=== PATIENT | male | born 1940 | race Caucasian/White ===

== ENCOUNTER 2017-10-12 06:08 | Emergency (ER) | payer OTHER ==
[2017-10-12 06:15] VITALS: RESP 16
[2017-10-12] MEDS ORDERED: PROPARACAINE 0.5% 15 ML OPHT DROP ONE (06:25)
[2017-10-12] MEDS ORDERED: FLUORESCEIN SODIUM 1 MG STRIP OP ONE (06:25)
--- NOTE | 2017-10-12 07:44 | EDPHY ---
H & P Time Seen by Provider: 10/12/17 07:19 HPI/ROS: CHIEF COMPLAINT: Foreign body left eye HISTORY OF PRESENT ILLNESS: 76-year-old male presents with a foreign body sensation in his left eye. 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 He noticed a foreign body on his left upper eyelid. He tried to get out and it dislodged. However he continues to have a foreign body sensation in the left upper quadrant of his eye. No excessive tearing and no visual change. Past Medical/Surgical History: Hyperlipidemia Smoking Status: Never smoked Physical Exam: Visual Acuity: noted from Nurse's notes. Lids: Upper lid everted, no foreign body visible Conjunctivae: Conjunctival erythema, no discharge Pupils:equal round and reactive to light EOMI Cornea: Normal, no fluorescein uptake Anterior chamber:Clear, no hyphema Constitutional: Initial Vital Signs Temperature (C) 36.7 C 10/12/17 06:09 Heart Rate 78 10/12/17 06:09 Respiratory Rate 16 10/12/17 06:09 Blood Pressure 141/91 H 10/12/17 06:09 O2 Sat (%) 94 10/12/17 06:09 O2 Delivery Mode Room Air Allergies/Adverse Reactions: No Known Allergies Allergy (Verified 10/12/17 06:14) Home Medications: Medication Instructions Recorded Aspirin [Aspirin 81mg (*)] 81 mg PO DAILY 10/16/14 Atorvastatin Calcium [Lipitor 10 10 mg PO HS 10/16/14 mg (*)] Herbals/Supplements -Info Only 1 ea PO DAILY 10/16/14 Levothyroxine [Synthroid 175 mcg 175 mcg PO DAILY06 10/16/14 (*)] Magnesium Oxide [Magnesium Oxide 1,200 mg PO HS 10/16/14 400 mg (*)] Multivitamins [Multivitamin (*)] 1 each PO DAILY 10/16/14 Cashion-3 Fatty Acids [Fish Oil 1000 2,000 mg PO DAILY 10/16/14 mg (*)] Medical Decision Making ED Course/Re-evaluation: This patient presents with a foreign body sensation in his left eye. No foreign body visualized and no corneal abrasion. The eye was irrigated with normal saline. [place] better after irrigation. 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 Differential Diagnosis: Differential diagnosis includes hyphema, acute iritis, traumatic mydriasis, corneal abrasion, globe rupture. Departure - Departure Disposition: Home, Routine, Self-Care Clinical Impression: Foreign body, eye Qualifiers: Encounter type: initial encounter Laterality: left Qualified Code(s): T15.92XA - Foreign body on external eye, part unspecified, left eye, initial encounter Condition: Good Instructions: Eye Foreign Body (ED) Additional Instructions: Call Dr. Goss to make an appointment if the eye irritation persists. Referrals: Mary Garland MD [Primary Care Provider] - As per Instructions
[2017-10-12 08:01] VITALS: BP 138/80; PULSE 76; TEMP 97.9; O2SAT 98
== END 2017-10-12 08:00 | disposition home or self-care (01) ==
DX: T15.92XA Foreign body on external eye, part unspecified, left eye, initial encounter (principal); Z79.82 Long term (current) use of aspirin; X58.XXXA Exposure to other specified factors, initial encounter; Y92.513 Shop (commercial) as the place of occurrence of the external cause; Y93.89 Activity, other specified

== ENCOUNTER 2017-11-29 13:46 | Observation (INO) | payer OTHER ==
--- NOTE | 2017-11-29 14:21 | CPEKG ---
Heart Rate: 70 RR Interval: 857 P-R Interval: 168 QRSD Interval: 96 QT Interval: 388 QTC Interval: 419 P Seneca: 48 QRS Seneca: 42 T Wave Seneca: 26 EKG Severity - OTHERWISE NORMAL ECG - EKG Impression: SINUS RHYTHM EKG Impression: LOW VOLTAGE IN FRONTAL LEADS Electronically Signed By: Nori Lopez 29-Nov-2017 20:51:24
--- NOTE | 2017-11-29 14:23 | EDPHY ---
H & P Stated Complaint: 40 min ago episode of dizzyness/blurred vision and memory isssues/resolving Time Seen by Provider: 11/29/17 14:14 HPI/ROS: CHIEF COMPLAINT: Lightheadedness, vision loss, memory change HISTORY OF PRESENT ILLNESS: The patient is a 76 y/o male with hypothyroidism arriving with his complaining of acute onset lightheadedness, partial vision loss, and memory loss onset 1 hour ago. He describes walking into [employer] and feeling suddenly lightheaded and unsteady on his feet. He was able to continue walking through the store. He then received a text and had difficulty seeing the screen to read it. He says, "I could see part of it, but not all of it" because there was a section on the right side that was "completely blank." This was associated with fatigue and difficulty remembering some facts like the Loss Prevention Lead's name. So he sat down while his got him pizza and soda; he has gradually been feeling better since eating. He notes he had a latte with chocolate this morning, but did not eat anything until the pizza this afternoon. He did have some prior episodes of hypoglycemia when he was in his 30s-40s. His lightheadedness and visual change have since resolved, though he still feels like his memory is not back to baseline. He denies history of diabetes, hypertension, cardiac disease, respiratory disease. He was able to exercise on a bike for 30 minutes yesterday normally. REVIEW OF SYSTEMS: Constitutional: No fever, no chills Eyes: see HPI ENT: No sore throat Respiratory: No cough, no shortness of breath Cardiac: No chest pain Gastrointestinal: No nausea, no vomiting, no abdominal pain Genitourinary: No hematuria, no dysuria Musculoskeletal: No leg pain or swelling Skin: No rash Neurological: see HPI Psychiatric: No depression - Personal History Current Tetanus/Diphtheria Vaccine: Yes Tetanus Vaccine Date: <10 years - Medical/Surgical History PMH: PMH includes: 1. Hypothyroidism 2. Hypercholesterolemia - 10mg Atorvastatin QD 3. 5 back surgeries Prior medical records reviewed including admission 10/16/14 for abdominal pain. Hx Asthma: No Hx Chronic Respiratory Disease: No Hx Diabetes: No Hx Cardiac Disease: No Hx Renal Disease: No Hx Cirrhosis: No Hx Alcoholism: No Hx HIV/AIDS: No Hx Splenectomy or Spleen Trauma: No Other PMH: back surg, hypothyroid, high cholestrol. - Social History Smoking Status: Never smoked Additional Social History: at bedside. 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 - Physical Exam Exam: General Appearance: Alert, talkative, normal speech Eyes: Pupils equal and round, no conjunctival pallor or injection ENT, Mouth: Mucous membranes moist Neck: Normal inspection Respiratory: Lungs are clear to auscultation Cardiovascular: Regular rate and rhythm Gastrointestinal: Abdomen is soft and non- tender Neurological: Alert, oriented x3, cranial nerves II through XII intact, motor 5 /5, sensory intact to light touch, normal gait Skin: Warm and dry, no rash Extremities: Nontender, no pedal edema Psychiatric: Mood and affect normal, normal thought process Constitutional: Initial Vital Signs Temperature (C) 36.3 C 11/29/17 13:50 Heart Rate 85 11/29/17 13:50 Respiratory Rate 18 11/29/17 13:50 Blood Pressure 156/77 H 11/29/17 13:50 O2 Sat (%) 95 11/29/17 13:50 O2 Delivery Mode Room Air Allergies/Adverse Reactions: No Known Allergies Allergy (Verified 11/29/17 17:38) Home Medications: Medication Instructions Recorded Aspirin [Aspirin 81mg (*)] 81 mg PO HS 10/16/14 Atorvastatin Calcium [Lipitor 10 10 mg PO HS 10/16/14 mg (*)] Herbals/Supplements -Info Only 1 ea PO DAILY 10/16/14 Multivitamins [Multivitamin (*)] 1 each PO DAILY 10/16/14 C/E/Zn/Cu/OM3/DHA/EPA/LUT/ZEAX 1 each PO BID 11/29/17 [Preservision Areds 2 Softgel] Cyanocobalamin [Vitamin B12 (*)] 1,000 mcg PO DAILY 11/29/17 Levothyroxine Sodium [Levoxyl] 175 mcg PO DAILY 11/29/17 Medical Decision Making - Diagnostics EKG Interpretation: EKG interpreted by me reveals NSR, rate 70, low voltage. Interpretation: borderline EKG Imaging Results: Head CT 11/29/17 14:16 Impression: 1. Atrophy. 2. No acute hemorrhage, hydrocephalus, or mass effect. 3. Cerebrovascular atherosclerosis. 4. No definite acute infarct. 5. Old lacunar infarct right basal ganglia. 6. Consider MRI of the brain, if there is continued clinical concern. Imaging: Discussed imaging studies w/ call center recruiter Radiologist, I viewed and interpreted images myself ED Course/Re-evaluation: This is an active and relatively healthy 76 y/o male who presents with a 1-hour history of lightheadedness, right visual field changes, and acute memory loss that has been gradually improving since onset. His neuro exam is completely normal. Presentation concerning for TIA. plan for IV, labs, EKG, and non- contrast head CT. The 12 lead EKG was interpreted by myself. Sinus rhythm rate 70. See hard copy and/or "tracemaster" electronic copy for interpretation. Head CT shows no hemorrhage, atrophy, and possible old lacunar infarct in the right basal ganglia per Dr. Garcia, radiology. 324mg PO aspirin ordered. Consulted with hospitalist service. Dr. Kauffman accepts admission. CTAs of his head and neck and MRI brain ordered. 1505: Reassessed patient and discussed work up. He remains asymptomatic and neuro exam remains normal. He agrees to admission for w/u of TIA. Differential Diagnosis: includes though not limited to hypoglycemia, hyponatremia, CVA, vertigo, dysrhythmia - Data Points Laboratory Results: Laboratory Results 11/29/17 14:20 11/29/17 14:20 Medications Given: Discontinued Medications Aspirin (Aspirin) 324 mg PO EDNOW ONE Stop: 11/29/17 15:00 Last Admin: 11/29/17 15:22 Dose: 324 mg Aspirin (Aspirin) 325 mg PO DAILY [facility] Stop: 05/29/18 08:59 Last Admin: 11/30/17 10:14 Dose: 325 mg Enoxaparin Sodium (Lovenox) 40 mg SC DAILY [facility] Stop: 05/29/18 08:59 Last Admin: 11/30/17 10:14 Dose: Not Given Sodium Chloride (Ns) 1,000 mls @ 3,000 mls/hr IV ONCE ONE Stop: 11/29/17 15:23 Last Admin: 11/29/17 15:27 Dose: 1,000 mls Departure - Departure Disposition: [facility] Inpatient Acute Clinical Impression: TIA (transient ischemic attack) Qualifiers: Transient cerebral ischemia type: other Qualified Code(s): G45.8 - Other transient cerebral ischemic attacks and related syndromes Condition: Fair Report Scribed for: Nori Lopez Report Scribed by: Asiya Dee Date of Report: 11/29/17 Time of Report: 14:33 Physician Review and Approval Statement: 11/29/17 14:33 Portions of this note were transcribed by a certified medical technician assistant. I personally performed a history, physical exam, medical decision making, and confirmed accuracy of information the transcribed note.
[2017-11-29 14:40] LABS: PLATELET COUNT 279 10^3/uL (150-400)
[2017-11-29] MEDS ORDERED: ASPIRIN 81 MG CHEWABLE TAB PO ONE (14:59)
[2017-11-29] MEDS ORDERED: NS 1,000 ML IV ONE (15:04)
[2017-11-29] MEDS ORDERED: ACETAMINOPHEN 325 MG TAB PO PRN (15:04)
[2017-11-29] MEDS ORDERED: ONDANSETRON 4 MG/2 ML VIAL IVP PRN (15:04)
[2017-11-29] MEDS ORDERED: ONDANSETRON DISINTEGRATING 4 MG TAB PO PRN (15:04)
[2017-11-29] MEDS ORDERED: IOPAMIDOL (ISOVUE 370) 100 ML BTL IV ONE (15:25)
--- NOTE | 2017-11-29 16:09 | GHP ---
[f rep st] HISTORY AND PHYSICAL DATE OF ADMISSION: 11/29/2017 CHIEF COMPLAINT: Lightheadedness, vision loss, and memory changes. HISTORY OF PRESENT ILLNESS: A 76-year-old male with a history of hypothyroidism and hyperlipidemia negrito lindsey arrives with his after experiencing lightheadedness, left-sided vision loss, and memory jackman es. The patient reports that the symptoms began approximately 1 hour prior to presentation to the em ergency department. The patient had been going to [facility], had driven his own car. When he got out o f his car, noted some lightheadedness and mild dizziness that persisted until he presented himself to the pharmacy counter at [facility]. While he was at the counter, noticed that he had lost vision in the left field transiently and was having difficulty recalling facts of memory including the Vice Presid ent's name. Patient sat down and attempted to eat and drink at [facility]. Dizziness slightly resolved, and they proceeded to present to the emergency department for evaluation[facility] his vision loss symptoms, memory symptoms, and lightheadedness have all resolved. The patient de nies any chest pain, denies any palpitations or history of palpitations. Denies any shortness of chau ath. Denies any abdominal discomfort, nausea, vomiting, diarrhea. Denies any dysuria or any recent subjective fevers or chills. The patient does note that he does not eat excellent food in the [employer], but that has been unchanged for many years. Prior to his symptoms, he had coffee with milk only, but that is his typical morning intake prior to 10 a.m. PAST MEDICAL HISTORY: 1. Hypothyroidism. 2. Hyperlipidemia, on medications. 3. Multiple lumbar back surgeries. SOCIAL HISTORY: Negative for tobacco. Occasional alcohol intake. No illicit drugs or marijuana. FAMILY HISTORY: Negative for strokes. REVIEW OF SYSTEMS: A 10-point review of systems is negative with the exception of that reported in t he HPI. PHYSICAL EXAMINATION: VITAL SIGNS: Blood pressure 156/77, heart rate 85, respiratory rate 18, 95% o n room air, 36.4. GENERAL: This is a healthy-appearing middle-aged male in no acute distress. HEEN T: Notable for moist mucous membranes. Eye exam is negative for any icterus. CARDIAC: Patient is regular rate and rhythm. PULMONARY: Clear to auscultation bilaterally. GASTROINTESTINAL: Positive bowel sounds. Abdomen is soft and nontender. MUSCULOSKELETAL: Negative for any lower extremity ed neva. SKIN: Negative for any rashes. NEUROLOGIC: He is alert and oriented x3. Strength is intact 5/5 of the bilateral upper and lower extremities. Sensation is intact throughout. Cranial nerves 2- 12 are grossly intact. Gait was not assessed. DATA: White count 5.8, hematocrit 43.6, platelets of 276. Sodium of 143, creatinine 1.2, BUN 25, gl ucose 123. Troponin less than 0.012. Noncontrast CT of the head, which I personally reviewed and in terpreted, shows no acute intracranial findings. Radiology comments on old lacunar infarct in the ri t basal ganglia. EKG, which I personally reviewed and interpreted, shows sinus rhythm, normal axis , normal intervals with no acute ST-T changes. ASSESSMENT AND PLAN: This is a 76-year-old male presenting with transient neurologic deficits. 1. Transient ischemic attack. Patient's vision loss and memory problems have resolved at the time o f presentation to the emergency department. He has received aspirin in the ED. Initial noncontrast imaging is negative. We will admit the patient for observation. Continue daily aspirin, place the p atient on cardiac monitoring. Obtain CTA of the head and neck as well as MRI. Echocardiography has already been ordered, and Neurology will be consulted for consultation tomorrow. The patient's blood pressures do not require intervention at this time. 2. Hyperglycemia on admission labs. We will send a hemoglobin A1c. 3. Hypothyroidism. We will send a TSH from emergency department labs. Continue Levoxyl at current dosing. 4. Mild dehydration. Patient does have an elevated BUN and creatinine. We will treat with a liter of normal saline on admission. Recheck in the morning. 5. Prophylaxis. If not ambulating, with Lovenox. 6. Diet. Once cleared for safe swallowing, can have a cardiac diet. DISPOSITION: I expect in less than 2 midnights if the patient's diagnostic workup is normal and neur ologic consultation is benign. I have discussed the case with the emergency room physician. Patient will be triaged to the medical-surgical floor for care. /[id number]/MODL
[2017-11-30 08:26] VITALS: BP 122/68; RESP 16
[2017-11-30] MEDS ORDERED: ASPIRIN 325 MG TAB PO SCH (09:00)
[2017-11-30] MEDS ORDERED: ENOXAPARIN 40 MG/0.4 ML SYR SC SCH (09:00)
--- NOTE | 2017-11-30 09:34 | NEUROPROG ---
Assessment: [id number] - Neurology Consult: - CC: Transient vision changes, dizziness, lightheadedness, and cognitive changes - HPI: The patient noted on 11/29/17 he had 30 min of dizziness, lightheadedness, memory changes, and problems with vision in the left eye. He reported his left eye vision changes were inability to see to the left side of his vision. Symptoms then resolved. He presented to [facility] ER and was admitted for TIA evaluation. Head CT showed no bleed and CTA head/neck showed no acute vascular problems to explain his symptoms. Brain MRI unremarkable. I initially saw the patient on . He denied any current complaints. - PMHx: hypothyroidism, HLD, multiple lumbar back surgeries - Home Meds: ASA 81 mg qd, atorvastatin 10 mg qd, levothyroxine, B12 - SHx: no tobacco FHx: no strokes - ROS: Pt denied acute fever, total vision loss, active severe chest pain, respiratory failure, total body severe rash, total bowel/bladder incontinence, psychosis, active seizures, or active bleeding - O: VS reviewed General: Alert Eyes: Fundoscopic exam not able to visualize optic disks CV: Heart RRR, no murmur, no carotid bruit Lungs: Clear to auscultation bilaterally, no rhonchi or rales Neuro: - Mental: . Oriented x person/place/date . concentration appears normal . speech fluency/comprehension normal . memory appears normal . fund of knowledge appear intact - Cranial Nerves: . II: PERRL, VFFTC . III/IV/: EOMI, no nystagmus, normal smooth pursuits, no Ptosis . V: facial sensation intact to LT . VII: face symmetric to eye closure and smile . VIII: hearing intact to conversation . IX/X: uvula raises symmetrically . XI: SCM 5/5 B/L strength . XII: tongue protrudes midline w/nl strength - Motor: . Tone: normal tone in all 4 extremity . Strength: no pronator drift, strength 5/5 throughout (B/L delt, bic, tri, hand philanthropy officer, hf/he, df/pf) - Reflexes: B/L bic/BR/patella 2/4 - Sensory: all 4 extremity intact to light touch - Coord: [id number] wnl, SIERRA wnl, [id number] wnl - Gait: deferred - NIH SS 0 - Labs: 11/29/17- CBC wnl, CMP BUN 25H, H1AC 6.2H, LDL 68L, TSH wnl - Rads: 11/29/17- Head CT: no acute bleed 11/29/17- CTA head/neck: no significant acute vascular abnormality 11/29/17- Brain MRI w/o con: mod atrophy, no acute changes and no stroke (I personally visualized the images on 11/29/17) 11/30/17- TTE: done, pending read - Assessment: 1. Probable atypical migraine causing 30 min of dizziness, lightheadedness, vision changes and memory problems: Normal neurologic exam 11/29/17 and unremarkable brain MRI and CTA head/neck. No clear cause for symptoms and given symptoms lasted 30 min without any stroke seen on brain MRI I doubt this was a TIA or stroke. It was likely an atypical migraine. Symptoms have resolved and all testing normal. - Plan: - No change to current medications - TTE pending, if normal he can discharge home - F/U in 3-5 weeks with neurology service Objective: Vital Signs Temp Pulse Resp BP Pulse Ox 36.8 C 59 L 16 122/68 H 93 11/30/17 08:00 11/30/17 08:00 11/30/17 08:00 11/30/17 08:00 11/30/17 08:00 11/29/17 11/30/17 12/01/17 05:59 05:59 05:59 Intake Total 1640 Output Total 500 Balance 1140 Allergies/Adverse Reactions: No Known Allergies Allergy (Verified 11/29/17 17:38)
[2017-11-30 11:36] VITALS: PULSE 68; TEMP 98.6; O2SAT 92
--- NOTE | 2017-11-30 12:36 | HOSPPROG ---
Hospitalist Progress Note Assessment/Plan: Patient is a 76-year-old male with a history of hypothyroidism hyperlipidemia. He presented the emergency room after experience lightheadedness, left-sided vision loss and memory changes. He transiently lost his vision. He was admitted for further evaluation. Reviewed his care with Dr. Strickland. He suspected that the patient had an atypical migraine causing his symptoms. MRI does not show any type of stroke. Head CT shows nothing acute. CTA of head and neck showed nothing significant * transient neurologic deficits, likely a atypical migraine -his symptoms lasted 30 min without any stroke seen on brain MRI so unlikely a TIA or stroke -further follow up with Neurology in 3-5 weeks -reviewed echo report, stable -reviewed the teletypesetter monitor, no atrial fibrillation seen * hyperglycemia -hemoglobin A1c is 6.2 -patient has a history of low blood sugars. Recommendation is for follow-up with his primary care provider -I reviewed this finding with him * elevated triglycerides -he said this has been ongoing he is aware of this and will follow up with his doctor * hypothyroidism -Synthroid * mild dehydration Subjective: Reese is feeling well no complaints Objective: Vital Signs Temp Pulse Resp BP Pulse Ox 37.0 C 68 16 122/68 H 92 11/30/17 11:34 11/30/17 11:34 11/30/17 11:34 11/30/17 11:34 11/30/17 11:34 11/29/17 11/30/17 12/01/17 05:59 05:59 05:59 Intake Total 1640 Output Total 500 Balance 1140 - Physical Exam Constitutional: no apparent distress, appears nourished, not in pain Eyes: PERRL Ears, Nose, Mouth, Throat: hearing normal Cardiovascular: regular rate and rhythym Respiratory: no respiratory distress Gastrointestinal: normoactive bowel sounds Skin: warm Musculoskeletal: full muscle strength, no muscle tenderness Neurologic: AAOx3, CN II-XII Intact, No weakness, No pronator drift, No facial droop Psychiatric: interacting appropriately, not anxious ICD10 Worksheet Patient Problems: Problems Problem Status Onset TIA (transient ischemic attack) Acute Diverticulitis Acute
--- NOTE | 2017-11-30 12:43 | ECHO ---
[email or web address] [address] Main: [phone] Fax: [email or web address] Echocardiogram Name: JORGE NIETO MR#: [id number] Study Date: 11/30/2017 Study Time: 08:58 AM Date of : 1940 Age: 76 year(s) Height: 190.5 cm (75 in.) Weight: 99.79 kg (220 lb.) BSA: 2.29 m2 Gender: Male Examination: Echo with Agitated Saline Indication: tia Image Quality: Technically Difficult Contrast: I.V. dose of agitated saline Requested by: Fransisca Kauffman BP: 122 mmHg/68 mmHg Heart Rate: Rhythm: Indication: tia Procedure Staff Route Sales Specialist: Janna Ruano [facility] Reading Physician: Kiran Rogers MD Requesting Provider: Conclusions: Normal size left ventricle. Normal global systolic LV function. EF is 62 %. No regional wall motion abnormality. Normal diastolic LV function. Normal size right ventricle. The left atrium is mildly dilated. An agitated saline study was performed and was negative at rest and positive with Valsalva maneuver. The right atrium is normal in size. There is no mitral valve regurgitation. The aortic valve is normal in appearance and function. No aortic valve stenosis is present. The tricuspid valve is normal in appearance and function. Trivial tricuspid valve regurgitation. Pulmonary artery pressure is not obtained due to inadequate TR jet. The aorta is normal. Normal size aortic root measuring 3.6 cm. Normal size ascending aorta measuring 2.8 cm. No pericardial effusion. Measurements: Chambers Valvular Assessment AV/MV Valvular Assessment TV/PV Normal Normal Normal Name Value Range Name Value Range Name Value Range Ao Jeniffer (MM): 3.6 cm (2.2 cm-3.7 AV Vmax: 1.05 m/s (1 m/s-1.7 PV Vmax: 0.94 m/s (0.6 m/s-0.9 cm) m/s) m/s) IVSd (2D): 1.0 cm (0.6 cm-1.1 AV maxP mmHg ( - ) PV PGmax: 4 mmHg ( - ) cm) Patient: JORGE NIETO Study Date: 11/30/2017 Page 1 of 2 08:58 AM LVDd (2D): 4.2 cm (4.2 cm-5.9 LVOT Vmax: 0.99 m/s (0.7 m/s-1.1 cm) m/s) LVDs (2D): 2.8 cm (2.1 cm-4 MV E Vmax: 0.57 m/s ( - ) cm) MV A Vmax: 0.68 m/s ( - ) LVPWd (2D): 0.9 cm (0.6 cm-1 MV E/A: 0.84 ( - ) cm) LVEF (BP): 62 % (>=55 %) RVDd(2D): 3.9 cm (1.9 cm-3.8 cmmm) Continued Measurements: Chambers Valvular Assessment AV/MV Name Value Name Value LADs Lon.6 cm MV DecTime: 218 m/s LA Area: 17.7 cm2 MV E' Septal: 0.06 m/s LA Volume: 57 ml MV E/E' Septal: 9.20 LA Volume Index: 24.9 ml/m2 Additional Vessels Name Value Ao Ascendin.8 cm Findings: Left Ventricle: Normal size left ventricle. No LV hypertrophy. Normal global systolic LV function. EF is 62 %. No regional wall motion abnormality. Normal diastolic LV function. Right Ventricle: Normal size right ventricle. Normal RV function. Left Atrium: The left atrium is mildly dilated. An agitated saline study was performed and was negative at rest and positive with Valsalva maneuver. Right Atrium: The right atrium is normal in size. Mitral Valve: The mitral valve is normal in appearance and function. There is no mitral valve regurgitation. No mitral stenosis is present. Aortic Valve: The aortic valve is normal in appearance and function. There is no aortic valve regurgitation. No aortic valve stenosis is present. Tricuspid Valve: The tricuspid valve is normal in appearance and function. Trivial tricuspid valve regurgitation. Pulmonary artery pressure is not obtained due to inadequate TR jet. Pulmonic Valve: Pulmonary valve not well visualized. There is no pulmonic regurgitation seen. Aorta: The aorta is normal. Normal size aortic root measuring 3.6 cm. Normal size ascending aorta measuring 2.8 cm. Pericardium: No pericardial effusion. (No Signature Object) Patient: JORGE NIETO Study Date: 11/30/2017 Page 2 of 2 08:58 AM [id number]
--- NOTE | 2017-11-30 14:03 | GDS ---
[f rep st] DISCHARGE SUMMARY DISCHARGE DIAGNOSES: 1. Likely an atypical migraine with transient neurologic deficits. 2. Hyperglycemia. 3. Elevated triglycerides. 4. Hypothyroidism. 5. Mild dehydration. HISTORY OF PRESENT ILLNESS: Briefly, the patient is a 76-year-old male with history of hyperthyroidism, hyperlipidemia. He presented to the emergency room after he experienced lightheadedness, left-sided vision loss and memory changes. These symptoms were all transient, lasting for approximately 30 minutes. He came to the emergency room to rule out a stroke. The MRI did not show any type of stroke. Head CT showed nothing acute. CT of head and neck showed nothing significant. I also reviewed his echocardiogram, it was noted to be stable. CONSULTATION: Dr. Gokul Dave. HOSPITAL COURSE: 1. Likely an atypical migraine. His symptoms lasted 30 minutes without any stroke seen on MRI, so unlikely a TIA or stroke. Further followup with Neurology in the outpatient setting. 2. Hyperglycemia. The patient said he has a long history of low blood sugars. His A1c is slightly elevated at 6.2. I have told him to follow up with his primary care provider in regard to this. 3. Elevated triglycerides. He is aware of this and will follow up with Dr. Garland. 4. Hypothyroidism, on Synthroid. 5. Mild dehydration, resolved. DISCHARGE CONDITION: Stable. Blood pressure is 122/68, heart rate is 68, respiratory rate is 16, O2 sats on room air 92%, temperature is 37 degrees Celsius. MEDICATIONS AT DISCHARGE: Please see the EMR. DISCHARGE INSTRUCTIONS: Return to the ER if he should have any further stroke symptoms. /[id number]/MODL MTDD
[2017-11-30] MEDS ORDERED: ATORVASTATIN CALCIUM 10 MG TAB PO SCH (21:00)
[2017-11-30] MEDS ORDERED: PRESERVISION AREDS2 FORMULA EYE VIT 1 EACH PO SCH (21:00)
[2017-11-30] MEDS ORDERED: ASPIRIN 81 MG CHEWABLE TAB PO SCH (21:00)
[2017-12-01] MEDS ORDERED: MULTIVITAMINS 1 EACH TAB PO SCH (09:00)
[2017-12-01] MEDS ORDERED: Herbals/Supplements -Info Only PO SCH (09:00)
[2017-12-01] MEDS ORDERED: LEVOTHYROXINE 175 MCG TAB PO SCH (09:00)
[2017-12-01] MEDS ORDERED: CYANO/VITAMIN B12 1000 MCG TAB PO SCH (09:00)
== END 2017-11-30 14:00 | disposition home or self-care (01) ==
LOC: F3N 16:14
PROVIDERS: ADMIT Hospitalist; ATTEND Nurse Practitioner Family
DX: G43.909 Migraine, unspecified, not intractable, without status migrainosus (principal); G45.8 Other transient cerebral ischemic attacks and related syndromes; E05.90 Thyrotoxicosis, unspecified without thyrotoxic crisis or storm; E03.9 Hypothyroidism, unspecified; E78.5 Hyperlipidemia, unspecified; E86.0 Dehydration; I67.2 Cerebral atherosclerosis
CPT/HCPCS: 70450; 70496; 70498; 70551; 92523; 93005; 93306; 99285; G0378; G9165; G9166; G9167; J1650; Q9967; 82947-QW